=== PATIENT | female | born 1985 | race Two or more races ===

== ENCOUNTER 2016-06-10 07:24 | Emergency (ER) | payer SELFPAY ==
[~2016-06-10] VITALS: Ht 160 cm; Wt 52.2 kg
[2016-06-10] MEDS ORDERED: NKM (07:37)
[2016-06-10] MEDS ORDERED: Oxycodone/Acetaminophen 5-325 ORAL ONE (07:45)
[2016-06-10] MEDS ORDERED: Bupivacaine 0.5% Inj 30 ml vial INJ ONE (07:45)
[2016-06-10] MEDS ORDERED: Lidocaine 1% MPF 10mg/ml 5ml INJ ONE (07:45)
--- NOTE | 2016-06-10 08:04 | Emergency Room Report ---
History of Present Illness General Chief Complaint: Toothache Source: Patient Present Illness HPI 31 YO F with pain from impacted left lower wisdom tooth since last night. Acute onset of pain. Denies fever/chills, jaw swelling. Denies elevation of floor of mouth, difficulty swallowing, lips/tongue swelling. Never had wisdom teeth removed in the past. Didnt take any OTC meds before coming in. Trying to find Dentist currently. Allergies: Coded Allergies: No Known Allergies (Unverified , 06/10/16) Patient History Past Medical History: none Past Surgical History: none Pertinent Family History: none Social History: Denies: alcohol use, drug use, smoking Last Menstrual Period: One week ago Now: No Immunizations: UTD Reviewed Nursing Documentation: PMH: Agreed, PSxH: Agreed Nursing Documentation-PMH Past Medical History: No Stated History Review of Systems All Other Systems: negative except mentioned in HPI Physical Exam Vital Signs Date Time Temp Pulse Resp B/P Pulse Ox O2 Delivery O2 Flow Rate FiO2 06/10/16 07:32 98.1 64 16 106/75 99 Room Air Sp02 EP Interpretation: reviewed, normal General Appearance: normal inspection, well appearing, no apparent distress, alert Head: atraumatic ENT: normal ENT inspection, hearing grossly normal, normal voice, other - Corroded left lower wisdom tooth. No gatito-apical abscess. 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, speech normal Psychiatric: normal inspection, judgement/insight normal, mood/affect normal Skin: normal inspection, normal color, no rash Procedures Additional Procedure Procedure Narrative Left sided inferior alveolar nerve block Mixed 2cc 1% lidocaine with 8cc 0.5% bupivacaine Entered mouth from right side across lower teeth Impacted left ramus with 27 gauge needle, withdrew, no blood Pushed 3-4cc of medication No bleeding Patient feels immediate relief Medical Decision Making Diagnostic Impression: Primary Impression: Toothache ER Course Analgesia with inferior left alveolar nerve block Rx T#3 Patient to continue to look for dentist for today, tomorrow DC home Last Vital Signs Date Time Temp Pulse Resp B/P Pulse Ox O2 Delivery O2 Flow Rate FiO2 06/10/16 07:32 98.1 64 16 106/75 99 Room Air Status: improved Disposition: HOME, SELF-CARE Referrals: NOT CHOSEN IPA/,REFERRING (PCP) GREGORIO PERALES M.D. Jun 10, 2016 08:04
[2016-06-10] MEDS ORDERED: ACETAMINOPHEN-1 EAC1 ORAL (08:05)
[2016-06-10 08:19] VITALS: BP 107/71
== END 2016-06-10 08:19 | disposition home or self-care (01) ==
LOC: EMR 07:42
DX: K08.89 Other specified disorders of teeth and supporting structures (principal)
CPT/HCPCS: 64450; 99284; J3490